=== PATIENT | female | born 1975 | race Two or more races ===

== ENCOUNTER 2018-09-18 09:07 | Outpatient (CLI) | payer OTHER ==
[~2018-09-18] VITALS: Ht 162.6 cm; Wt 58.5 kg
[2018-09-18] MEDS ORDERED: PRILOSEC OTC20 MG ORAL (09:32)
[2018-09-18 09:45] VITALS: BP 111/79
--- NOTE | 2018-09-18 20:00 | Consultation ---
DATE OF CONSULTATION: 09/18/2018 CONSULTING PHYSICIAN: Boom Jones M.D. CHIEF COMPLAINT: Abdominal pain and rectal bleeding. HISTORY OF PRESENT ILLNESS: This is a 42-year-old female with past medical history of chronic GERD, abdominal pain for about 10 years. Apparently, she had an abdominal ultrasound outside. I do not have the report. The patient was told she has gallstones. Apparently, she had also endoscopy and she was told she had some gastric polyps in the past. Again, I do not have any of the report. This is all per the patient. The patient was referred to us for evaluation of above. She is still having complaint of abdominal pain in epigastric area and right upper quadrant, sometimes it wakes her up at night, associated with nausea, worse with eating. PAST MEDICAL HISTORY: 1. GERD. 2. Gallstones. PAST SURGICAL HISTORY: . MEDICATIONS: Omeprazole. FAMILY HISTORY: No family history of GI malignancies. SOCIAL HISTORY: The patient denies any tobacco, alcohol, or IV drug abuse. ALLERGIES: No known drug allergies. REVIEW OF SYSTEMS: A 10-point review of systems was performed. Pertinent positives are in HPI. PHYSICAL EXAMINATION: VITAL SIGNS: Temperature 98.4, pulse is 71, respirations 20, and blood pressure is 111/79. HEENT: Normocephalic and atraumatic. Sclerae anicteric. NECK: Supple. No evidence of obvious lymphadenopathy. CARDIOVASCULAR: Regular rhythm. Plus S1 and S2. No obvious murmur. LUNGS: Clear to auscultation bilaterally. ABDOMEN: Positive bowel sounds. Soft, nontender. No rebound. No guarding. No peritoneal sign. EXTREMITIES: No cyanosis. No clubbing. No edema. ASSESSMENT AND PLAN: 1. Abdominal pain, most probably secondary to gallstones, classical, with worsening with meals, waking her up at night, epigastric and right upper quadrant, associated with meals and nausea. We will recommend the patient to be evaluated by Surgery for possible cholecystectomy. 2. Rectal bleeding. It seems to be from hemorrhoids. It is not constant. It comes and goes. The patient had this bleeding once or twice a month and this is when she wipes herself and it is not in the toilet nor in the stool. It is basically when she wipes herself. She denies any constipation or hard stools. The patient was given prescription for Anusol-HC cream to apply when she gets bleeding and she was instructed to come back if there is no improvement. Boom Jones M.D. DR: HOA JOB#: [id number] CC:
== END 2018-09-18 13:44 | disposition home or self-care (01) ==
LOC: PAN 09:07
DX: R10.9 Unspecified abdominal pain (principal); K62.5 Hemorrhage of anus and rectum; K21.9 Gastro-esophageal reflux disease without esophagitis
CPT/HCPCS: 99202